=== PATIENT | male | born 1970 | race Two or more races ===

== ENCOUNTER 2017-09-05 11:23 | Day surgery (SDC) | payer OTHER ==
[2017-09-03 16:45] LABS: BLOOD UREA NITROGEN 14 mg/dL (7-18)
[2017-09-03 16:50] LABS: ASPARTATE AMINO TRANSFERASE 39 U/L (15-37)
[~2017-09-05] VITALS: Ht 160 cm; Wt 86.7 kg
[~2017-09-05 11:23] MED LIST: LISI1TAB5 PO
[2017-09-05 12:05] VITALS: BP 138/89
[2017-09-05] MEDS ORDERED: LACTATED RINGERS 1,000 ML IV SCH (12:05)
[2017-09-05] MEDS ORDERED: BUPIVACAINE/PF 0.5% ONE (13:12)
[2017-09-05] MEDS ORDERED: EPINEPHRINE 1 MG/ML, 1ML ONE (13:12)
[2017-09-05] MEDS ORDERED: SUCCINYLCHOLINE 20 MG/ML, 10ML ONE (13:35)
[2017-09-05] MEDS ORDERED: ROCURONIUM 10 MG/ML,10ML ONE (13:35)
[2017-09-05] MEDS ORDERED: PROPOFOL 10 MG/ML, 20ML ONE (13:35)
[2017-09-05] MEDS ORDERED: MIDAZOLAM 1 MG/ML, 2ML ONE ×2 (13:35→14:33)
[2017-09-05] MEDS ORDERED: FENTANYL PF 100 MCG/2ML ONE (13:36)
[2017-09-05] MEDS ORDERED: CEFAZOLIN 1,000 MG ONE ×2 (13:59)
[2017-09-05] MEDS ORDERED: HYDROmorphone 1 MG/ML, 1ML IV PRN (14:00)
[2017-09-05] MEDS ORDERED: ALBUTEROL SULFATE 2.5 MG/3 ML NPPB PRN (14:00)
[2017-09-05] MEDS ORDERED: LABETALOL 5MG/ML, 20ML IV PRN (14:00)
[2017-09-05] MEDS ORDERED: hydrALAzine 20 MG/ML, 1ML IV PRN (14:00)
[2017-09-05] MEDS ORDERED: EPHEDRINE 50 MG/ML, 1ML IVPush PRN (14:00)
[2017-09-05] MEDS ORDERED: METOCLOPRAMIDE 5 MG/ML, 2ML IV PRN (14:00)
[2017-09-05] MEDS ORDERED: OXYcodone 5 MG/5 ML ORAL.SOL UDC PO PRN (14:00)
[2017-09-05] MEDS ORDERED: MEPERIDINE/PF 25MG/0.5ML IVPush PRN (14:00)
[2017-09-05] MEDS ORDERED: KETOROLAC 30 MG/1 ML IV PRN (14:00)
[2017-09-05] MEDS ORDERED: METOPROLOL 1 MG/ML, 5ML IV PRN (14:00)
[2017-09-05] MEDS ORDERED: SODIUM CHLORIDE 0.9% PF 10ML ONE (14:00)
[2017-09-05] MEDS ORDERED: PROMETHAZINE 25 MG/ML, 1ML IV PRN (14:00)
[2017-09-05] MEDS ORDERED: ACETAMINOPHEN 325 MG TABLET PO PRN (14:00)
[2017-09-05] MEDS ORDERED: HYDROcodone/APAP 7.5-325MG/15ML UDC PO PRN (14:00)
[2017-09-05] MEDS ORDERED: MIDAZOLAM 1 MG/ML, 2ML IV PRN (14:00)
[2017-09-05] MEDS ORDERED: ONDANSETRON 2MG/ML, 2ML IVPush PRN (14:00)
[2017-09-05] MEDS ORDERED: DEXAMETHASONE 4 MG/ML, 1ML ONE (14:12)
[2017-09-05] MEDS ORDERED: ONDANSETRON 2MG/ML, 2ML ONE (14:12)
[2017-09-05] MEDS ORDERED: GLYCOPYRROLATE 0.2MG/1ML, 5ML ONE (14:18)
[2017-09-05] MEDS ORDERED: NEOSTIGMINE 1 MG/ML, 10ML ONE (14:18)
[2017-09-05] MEDS ORDERED: HYDROmorphone 1 MG/ML, 1ML ONE (14:28)
[2017-09-05] MEDS: FENTANYL PF 100 MCG/2ML IV PRN ×3 (15:01→15:15)
[2017-09-05] MEDS ORDERED: OXYcodone/APAP 5/325MG TABLET PO PRN (16:30)
[2017-09-05] MEDS ORDERED: KETOROLAC 30 MG/1 ML IVPush PRN (16:30)
[2017-09-05] MEDS ORDERED: morphine SULFATE 10 MG/ML, 1ML IVPush PRN (16:30)
== END 2017-09-05 17:35 ==
LOC: OUT 11:23
PROVIDERS: ATTEND Surgery
DX: K81.1 Chronic cholecystitis (principal); K82.8 Other specified diseases of gallbladder; I10 Essential (primary) hypertension
CPT/HCPCS: 36415; 47562; 80053; 88304; J0171; J0330; J0690; J1100; J1170; J1885; J2250; J2405; J2704; J2710; J3010; J3490; J7120